=== PATIENT | male | born 1985 | race Caucasian/White ===

== ENCOUNTER 2021-01-07 14:31 | Emergency (ER) | payer SELFPAY ==
[2021-01-07 14:45] VITALS: BP 142/97; PULSE 110
[2021-01-07] MEDS ORDERED: LORazepam 1 MG Tab PO ONE (15:55)
--- NOTE | 2021-01-07 17:30 | EDM.PDOC ---
ED HPI GENERAL MEDICAL PROBLEM - General Chief Complaint: Behavioral/Psych Stated Complaint: SUICIDAL IDEATION Time Seen by Provider: 01/07/21 15:30 - History of Present Illness INITIAL COMMENTS - FREE TEXT/NARRATIVE: 35-year-old male presents the emergency room with "mental breakdown" The patient had some suicidal thoughts, he said he thought about dairy in his face and dry ice. However he states he would not do that and really does not want to end his life. The patient has been under more stress following a argument with his roommate. The patient has underlying anxiety. He takes an SSRI for this and this usually helps however he had too much to drink last night. The patient does not drink on a regular basis maybe once a week. However last evening he probably had too much to drink. - Related Data Allergies Allergy/AdvReac Type Severity Reaction Status Date / Time No Known Allergies Allergy Verified 01/07/21 14:45 Home Meds: Home Meds Rizatriptan Benzoate [Maxalt] 5 mg PO ASDIRECTED PRN #3 tablet 09/03/16 [Rx] LORazepam [Ativan] 0.5 mg PO Q12H PRN #10 tablet 09/05/16 [Rx] Past Medical History - Past Health History Medical/Surgical History: Denies Medical/Surgical History HEENT History: Reports: Impaired Vision Respiratory History: Reports: None Musculoskeletal History: Reports: None Neurological History: Reports: None Psychiatric History: Reports: Depression Other Psychiatric History: patient states he has self diagnosed himself with manic depressive Endocrine/Metabolic History: Reports: None Social & Family History - Family History Family Medical History: No Pertinent Family History - Tobacco Use Tobacco Use Status *Q: Never Tobacco User - Caffeine Use Caffeine Use: Reports: Coffee Other Caffeine Use: 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 Denies: Confusion, Dizziness Psychiatric: Reports: Anxiety, Other (Patient denies being suicidal however has thought about it but does not believe he would actually do anything.) Hematologic/Lymphatic: Reports: No Symptoms Immunologic: Reports: No Symptoms ED EXAM, GENERAL - Physical Exam Exam: See Below Exam Limited By: No Limitations General Appearance: Alert, Anxious Eye Exam: Bilateral Eye: Normal Inspection Ears: Normal External Exam, Normal Canal, Hearing Grossly Normal, Normal TMs Nose: Normal Inspection, Normal Mucosa, No Blood Throat/Mouth: Normal Inspection, Normal Lips, Normal Teeth, Normal Gums, Normal Oropharynx, Normal Voice, No Airway Compromise Head: Atraumatic, Normocephalic Neck: Normal Inspection, Supple, Non-Tender, Full Range of Motion. No: Lymphadenopathy (L), Lymphadenopathy (R) Respiratory/Chest: No Respiratory Distress, Lungs Clear, Normal Breath Sounds Cardiovascular: Regular Rate, Rhythm, No Edema, No Murmur GI/Abdominal: Normal Bowel Sounds, Soft, Non-Tender Back Exam: Normal Inspection. No: CVA Tenderness (L), CVA Tenderness (R) Extremities: Normal Inspection, No Pedal Edema Neurological: Alert, Oriented, Normal Cognition Psychiatric: Anxious Skin Exam: Warm, Dry, Intact Lymphatic: No Adenopathy Course - Vital Signs Last Recorded V/S: Last Vital Signs Temp 36.2 C 01/07/21 14:42 Pulse 110 H 01/07/21 14:42 Resp 18 01/07/21 14:42 BP 142/97 H 01/07/21 14:42 Pulse Ox 100 01/07/21 14:42 - Orders/Labs/Meds Meds: Medications Discontinued Medications Generic Name Dose Route Start Last Admin Trade Name Sundeepq PRN Reason Stop Dose Admin Lorazepam 1 mg 01/07/21 15:55 01/07/21 16:06 Ativan PO 01/07/21 15:56 1 mg ONETIME ONE Administration - Re-Assessments/Exams Free Text/Narrative Re-Assessment/Exam: 01/07/21 17:35 I discussed the situation the patient several times and he is not suicidal he has no wishes to end his life but in bouts of frustration has thought of a way to do it but does not believe he would actually do it. He is confirmed this to me on several occasions here in the emergency department. Including my initial evaluation. It was determined just to try him on a little Ativan. The patient feels much better after this will discharge home at this time. From the machine in the waiting room we will give him Ativan 1 mg #10 1 p.o. twice daily only as needed. Departure - Departure Time of Disposition: 17:47 Disposition: Home, Self-Care 01 Clinical Impression: Panic attack, Anxiety reaction - Discharge Information Referrals: Geo Shankar PA-C [Primary Care Provider] - Additional Instructions: Return to the emergency room with any questions problems or worsening symptoms. Use the Ativan 1 twice daily only if needed for anxiety. If you are using this a lot 12 hours after taking this medication before driving or returning to work. Avoid alcohol altogether. Follow-up with your primary care provider this next week. Sepsis Event Note (ED) - Evaluation Sepsis Screening Result: No Definite Risk - Focused Exam Vital Signs: Vital Signs Temp Pulse Resp BP Pulse Ox 01/07/21 14:42 36.2 C 110 H 18 142/97 H 100
== END 2021-01-07 17:58 | disposition home or self-care (01) ==
LOC: JD.ED 14:31
DX: F41.0 Panic disorder [episodic paroxysmal anxiety] (principal); F41.1 Generalized anxiety disorder
CPT/HCPCS: 99283; A9270